=== PATIENT | female | born 1995 | race African-American/Black ===

== ENCOUNTER 2020-09-15 08:40 | Emergency (ER) | payer OTHER, SELFPAY ==
[2020-09-15 09:13] VITALS: BP 137/92; PULSE 97; RESP 17; TEMP 37; O2SAT 98; BMI 21.4
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
[2020-09-15 09:48] LABS: MANUAL DIFF FLAG NO
[2020-09-15] MEDS: Acetaminophen 325 MG TABLET 650 MG PO (09:48)
[2020-09-15 09:54] LABS: Basophils Percent Auto 0.4 % (0-2); Eosinophils Absolute Auto 0.6 X10*3/uL (0.0-0.4); Hematocrit 41.5 % (37-47); Hemoglobin 13.3 g/dl (12.0-16.0); Imm Gran Abs Auto 0.03 X10*3/uL (0.00-0.03); Imm Gran Pct Auto 0.3 % (0.0-0.4); Lymphocytes Absolute Auto 2.2 X10*3/uL (1.2-4.9); Lymphocytes Percent Auto 21.6 % (20-40); Mean Corpuscular Hemoglobin 24.6 pg (27.0-33.0); Mean Corpuscular Volume 76.7 fL (80-98); Mean Platelet Volume 9.8 fL (9.4-12.3); Monocytes Absolute Auto 0.7 X10*3/uL (0.1-1.2); Monocytes Percent Auto 7.2 % (2-11); Neutrophils Absolute Auto 6.6 X10*3/uL (2.0-8.3); Neutrophils Percent Auto 64.5 % (45-73); Platelet Count 315 X10*3/uL (160-400); Red Blood Count 5.41 X10*6/uL (4.20-5.50); Red Cell Distribution Width 13.9 % (11.0-16.0); White Blood Count 10.2 X10*3/uL (4.8-10.8)
[2020-09-15 09:57] LABS: Glucose Urine UA NEG (NEG); Leukocyte Esterase Urine 2+ (NEG); Nitrite Urine POS (NEG); Specific Gravity - Urine >= 1.030 (1.005-1.025); Urine Blood 3+ (NEG); Urine Ketones NEG (NEG); Urine Protein 1+ MG/DL (NEG-TRACE)
[2020-09-15 10:00] LABS: Appearance Urine CLOUDY; Color Urine YELLOW
[2020-09-15 10:09] LABS: Bacteria Urine 3+ /LPF; Mucus Urine 1+ /LPF; Squamous Epithelial Cell Urine 4+ /LPF; WBC Urine TNTC /HPF (0-4)
[2020-09-15 10:17] LABS: Alanine Aminotransferase 8 U/L (0-31); Albumin Level 4.4 g/dL (3.5-5.0); Alkaline Phosphatase 64 U/L (39-117); Anion Gap 13 (12-20); Aspartate Amino Transferase 12 U/L (5-31); Bilirubin Direct 0.3 mg/dL (0.0-0.5); Bilirubin Total 0.7 mg/dL (0.0-1.0); Blood Urea Nitrogen 14 mg/dL (9-16); Calcium 8.9 mg/dL (8.4-10.2); Carbon Dioxide 22 mmol/L (22-29); Chloride 105 mmol/L (96-108); Creatinine Clr Calc Pharmacy 84.2; Estimated Glomerular Filt Rate > 60; Glucose Random 86 mg/dL (60-115); Lipase 54 U/L (8-78); Magnesium 2.2 mg/dL (1.6-2.6); Potassium 4.6 mmol/l (3.3-5.1); Sodium 135 mmol/L (135-145); Total Protein 7.3 g/dL (6.5-8.0)
--- NOTE | 2020-09-15 10:22 | US_ITS ---
EXAMINATION: PELVIC ULTRASOUND CLINICAL INFORMATION: Positive with lower abdominal pain. Quantitative beta hCG 4 0-0 COMPARISON: None TECHNIQUE: Transabdominal and transvaginal pelvic ultrasound was performed. FINDINGS: The uterus is normal in size and shape and measures 8.8 x 3.9 x 4.7 cm in dimension. There is an intrauterine gestational sac and yolk sac. Mean sac diameter measures 0.6 cm suggesting gestational age of 5 weeks 1 day. No pole is seen. The cervix is normal appearing. The ovaries are normal. The right ovary measures 3.2 x 2 x 2.1 cm. The left ovary measures 2.1 x 1.3 x 1.7 cm. There is no fluid in the pelvis. US/US OB <= 14 weeks fetus IMPRESSION: Intrauterine gestational sac and yolk sac. No pole. Mean sac diameter suggests gestational age of 5 weeks 1 day.
--- NOTE | 2020-09-15 10:22 | US_ITS ---
EXAMINATION: PELVIC ULTRASOUND CLINICAL INFORMATION: Positive with lower abdominal pain. Quantitative beta hCG 4 0-0 COMPARISON: None TECHNIQUE: Transabdominal and transvaginal pelvic ultrasound was performed. FINDINGS: The uterus is normal in size and shape and measures 8.8 x 3.9 x 4.7 cm in dimension. There is an intrauterine gestational sac and yolk sac. Mean sac diameter measures 0.6 cm suggesting gestational age of 5 weeks 1 day. No pole is seen. The cervix is normal appearing. The ovaries are normal. The right ovary measures 3.2 x 2 x 2.1 cm. The left ovary measures 2.1 x 1.3 x 1.7 cm. There is no fluid in the pelvis. US/US OB transvaginal IMPRESSION: Intrauterine gestational sac and yolk sac. No pole. Mean sac diameter suggests gestational age of 5 weeks 1 day.
[2020-09-15 10:24] LABS: HCG Quantitative 4020 mIU/mL
[2020-09-15] MEDS: Azithromycin 500 MG TABLET 1000 MG PO (11:10)
[2020-09-15] MEDS: cefTRIAXone sodium 250 MG, Lidocaine HCl 1 % MPF 0.9 ML IM (11:10)
[2020-09-15] MEDS: metroNIDAZOLE 500 MG TABLET PO (11:10)
[2020-09-16 09:20] LABS: BV Int Neg Control Negative (Negative); BV Int Pos Control Positive (Positive)
[2020-09-19 15:30] LABS: CT PCR NOT DETECTED (Not Detect.); NG PCR NOT DETECTED (Not Detect.)
== END 2020-09-15 14:12 | disposition home or self-care (01) ==
PROVIDERS: Physician Assistant; Emergency Provider Emergency Medicine
DX: O98.811 Other maternal infectious and parasitic diseases complicating pregnancy, first trimester (principal); O23.11 Infections of bladder in pregnancy, first trimester; N30.00 Acute cystitis without hematuria; Z3A.01 Less than 8 weeks gestation of pregnancy
CPT/HCPCS: 36415; 76801; 76817; 80048; 80076; 81001; 83690; 83735; 84702; 85025; 87086; 87186; 87480; 87491; 87510; 87591; 87660; 96372; 99283; 99284; J0696

== ENCOUNTER → 2020-09-17 09:41 | Outpatient (BNVA) | payer OTHER, SELFPAY | PROVIDERS: Visit Provider Advanced Practice Midwife | DX: O23.591 Infection of other part of genital tract in pregnancy, first trimester (principal); Z3A.01 Less than 8 weeks gestation of pregnancy; Z87.891 Personal history of nicotine dependence | CPT/HCPCS: 81025; 99202 ==

== ENCOUNTER 2020-10-08 14:24 | Outpatient (REF) | payer OTHER, SELFPAY ==
--- NOTE | 2020-10-08 14:28 | US_ITS ---
EXAMINATION: ULTRASOUND OB LESS THAN 14 WEEKS. CLINICAL INFORMATION: Confirm viability. COMPARISON: Ultrasound OB less than 14 weeks 12 05/01 TECHNIQUE: Transabdominal and transvaginal ultrasound pelvis is performed. FINDINGS: On transabdominal ultrasound there is an intrauterine gestational sac and a pole. The crown-rump length measures 2.15 cm corresponding 8 weeks and 6 days and EDELMIRA of 05/14/2021. There is visualization of distal sac, yolk sac, pole and motion. The heart rate is 1 74 bpm. The right ovary measures 3.8 x 1.9 x 3.6 cm. There is anechoic corpus luteal cyst measuring 1.6 x 1.5 x 2.3 cm. The left ovary measures 2.8 x 0.8 x 1.9 cm and appears unremarkable. US/US OB <= 14 weeks fetus IMPRESSION: Single live intrauterine fetus with ultrasound gestational age of 8 weeks 6 days and EDELMIRA of 05/14/2021.
== END 2020-10-08 14:25 | disposition home or self-care (01) ==
LOC: HO.US 14:24
PROVIDERS: PCP Internal Medicine; Visit Provider Advanced Practice Midwife
DX: O36.8310 Maternal care for abnormalities of the fetal heart rate or rhythm, first trimester, not applicable or unspecified (principal)
CPT/HCPCS: 76801

== ENCOUNTER → 2020-10-15 09:50 | Outpatient (BNVA) | payer OTHER, SELFPAY | PROVIDERS: PCP Internal Medicine; Visit Provider Advanced Practice Midwife | CPT/HCPCS: 99212 ==

== ENCOUNTER 2020-10-21 09:12 | Outpatient (REF) | payer OTHER, SELFPAY ==
[2020-10-21 12:48] LABS: Amphetamine Screen Urine Not Detected (Not Detect); Barbiturates, Urine Not Detected (Not Detect); Benzodiazepines Screen Urine Not Detected (Not Detect); Cannabinoid Screen Urine POSITIVE (Not Detect); Cocaine Screen Urine Not Detected (Not Detect); Opiate Screen Urine Not Detected (Not Detect); Phencyclidine Screen Urine Not Detected (Not Detect)
[2020-10-22 07:40] LABS: HIV AB/AG Nonreactive (Nonreactive); HIV Num 1 0.09 S/CO (0.00-0.99); ~HepC Num1 0.12 S/CO (0.00-0.79); ~Hepatitis C Antibody Nonreactive (Nonreactive)
[2020-10-22 07:53] LABS: HBsAGNum1 0.16 S/CO (0.00-0.99); Hepatitis B Surface Antigen Negative (Negative)
[2020-10-22 07:58] LABS: Syphilis Screen Nonreactive (Nonreactive)
[2020-10-22 09:02] LABS: Rubella IgG Antibody 1.69 Index; Varicella IgG Antibody <135.00 index
== END 2020-10-21 09:13 | disposition home or self-care (01) ==
LOC: HO.LAB 09:12
PROVIDERS: PCP Internal Medicine; Visit Provider Advanced Practice Midwife
DX: Z34.01 Encounter for supervision of normal first pregnancy, first trimester (principal); Z23 Encounter for immunization
CPT/HCPCS: 80307; 81003; 86762; 86780; 86787; 86803; 86850; 86900; 86901; 87086; 87340; 87389; 88141; 88142; 90686; 99212

== ENCOUNTER 2022-03-01 01:26 | Emergency (ER) | payer MEDICAID, SELFPAY ==
[2022-03-01 01:33] VITALS: BP 134/96; BP 138/100; PULSE 98; PULSE 99; RESP 20; TEMP 36.4; O2SAT 98; O2SAT 99; BMI 22.2
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
[2022-03-01] MEDS: LORazepam 2 MG/ML VIAL IM (01:45)
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
== END 2022-03-01 05:08 | disposition home or self-care (01) ==
PROVIDERS: Emergency Provider Emergency Medicine
DX: F41.9 Anxiety disorder, unspecified (principal); Z72.89 Other problems related to lifestyle; Z63.4 Disappearance and death of family member
CPT/HCPCS: 96372; 99282; 99284; J2060